=== PATIENT | male | born 1945 | race Caucasian/White ===

== ENCOUNTER 2025-06-06 10:46 | Outpatient (AMB) | payer MEDICARE, SELFPAY ==
--- NOTE | 2025-06-06 11:01 | MHC.PC.OV ---
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 Accompanied by: Self / Same As Patient Allergies No Known Allergies Allergy (Verified 06/06/25 11:23) Tobacco use date assessed: 06/06/25 Fall risk assessment: No Falls in past year Last assessed Fall Risk: 06/06/25 Dental Screening Dental Screen Date: 06/06/25 Did you have a dental visit in the last 12 months?: Yes Did you have a dental problem in the last 6 months where you did not have access to dental care?: No Was dental information given to patient?: Patient has dentist HPI HPI Comments History of Present Illness Details History of Present Illness The patient is a 79-year-old male presenting with the need to establish care with a new primary care physician following the group home of his previous vacation planner. Myocardial infarction (history of heart attack): - Experienced a myocardial infarction five years ago, described as mild, with a stent placement. 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 Anxiety disorder: - Long-standing anxiety managed with Xanax 0.5 mg once or twice daily. 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 Arthritis: - Reports arthritis, with a recent bruise from carrying items downstairs. Preventative care: Colonoscopy: - Last colonoscopy at age 75 was clear; next scheduled at age 80. Review of Systems - Cardiovascular: Reports history of myocardial infarction. Denies current chest pain or palpitations. - Respiratory: Reports history of COPD. Denies current dyspnea or cough. - Neurological: Reports anxiety managed with medication. Denies dizziness or headaches. - Musculoskeletal: Reports arthritis. Denies swelling or significant pain. 10-point ROS reviewed and negative except as noted in HPI Past Medical History - Myocardial infarction with stent placement five years ago - Chronic Obstructive Pulmonary Disease (COPD) - Anxiety disorder managed with alprazolam - Hyperlipidemia managed with rosuvastatin - Arthritis Health Maintenance - Colonoscopy: Last performed at age 75, clear results, next scheduled at age 80 Physical Exam General: Well-appearing, in no acute distress. Vital signs: Within normal limits. HEENT: Normocephalic, atraumatic. PERRLA, EOMI. Conjunctiva clear, sclera anicteric. Oropharynx clear, mucous membranes moist. TMs intact bilaterally. Neck: Supple, no lymphadenopathy, no thyromegaly, no JVD or carotid bruits. Cardiovascular: RRR, normal S1/S2, no murmurs, rubs, or gallops. Peripheral pulses 2+ and symmetric. No edema. Respiratory: Lungs clear to auscultation bilaterally, no wheezes, rales, or rhonchi. Normal effort. History of COPD. Abdomen: Soft, non-tender, non-distended. Normoactive bowel sounds. No hepatosplenomegaly, no masses. MSK: Full range of motion, no joint swelling or deformity. Normal gait. History of arthritis. Skin: Warm, dry, intact. No rashes, lesions, or pallor. Bruise noted on arm from recent minor trauma. Neuro: Alert and oriented x3. Cranial nerves II-XII intact. Strength 5/5 throughout. Sensation intact. Reflexes 2+ symmetric. Normal coordination and gait. Psych: Appropriate mood and affect. Normal judgment and insight. History of anxiety, managed with Xanax. Plan 1. Myocardial Infarction (History Of Heart Attack) - Continue cardiology follow-up and medication regimen. 2. Chronic Obstructive Pulmonary Disease (Copd) - Maintain inhaler therapy with Wixela and Singulair. 3. Anxiety Disorder - Continue management with alprazolam as needed. 4. Hyperlipidemia - Continue rosuvastatin therapy as prescribed. 5. Arthritis - Monitor symptoms for any changes. 6. Preventative Care: Colonoscopy - Schedule follow-up colonoscopy at age 80. Discussion Notes During the visit, we discussed the patient's history of myocardial infarction and the importance of continuing follow-up with his industrial gas production operator. We reviewed his COPD management plan, emphasizing the effectiveness of his current inhaler regimen. The patient was advised to maintain his anxiety management with alprazolam as needed. We also discussed the continuation of rosuvastatin for hyperlipidemia and the importance of regular monitoring for arthritis symptoms. The patient was reminded of his upcoming colonoscopy at age 80. Patient was informed and verbally consented to the use of an ambient scribe for clinic note documentation during this visit. Patient Instructions - Continue all current medications as prescribed. - Follow up with your industrial gas production operator as scheduled. - Schedule your next colonoscopy at age 80. - Monitor for any changes in arthritis symptoms and report if they worsen. Total time spent caring for the patient today was 45 minutes. This includes time spent before the visit reviewing the chart, time spent documenting, and time spent reviewing medications, performing a medically necessary evaluation, counseling on diagnoses [facility] Medical History (Updated 06/06/25 @ 12:10 by Vikash Cooper MD) History of TN (myocardial infarction) CAD (coronary artery disease) Hyperlipidemia COPD (chronic obstructive pulmonary disease) Encounter for screening, unspecified Surgical History (Updated 06/06/25 @ 12:10 by Vikash Cooper MD) History of heart artery stent Family History (Updated 06/06/25 @ 11:33 by Jacqueline Pearson MA) Father No problems noted. Mother No problems noted. Social History (Updated 06/06/25 @ 11:34 by Jacqueline Pearson MA) Housing: House Alcohol intake: current Alcohol intake frequency: a few times a week Patient Tobacco Use Status: Never used Tobacco service: Yes Current occupational status: retired and disabled Cognitive needs: No Hearing needs: No Vision needs: Yes (rx glasses) Questionnaire PHQ-9 Over the last 2 weeks, how often have you been bothered by any of the following problems? 1. Little interest or pleasure in doing things: not at all 2. Feeling down, depressed, or hopeless: not at all 3. Trouble falling or staying asleep, or sleeping too much: not at all 4. Feeling tired or having little energy: not at all 5. Poor appetite or overeating: not at all 6. Feeling bad about yourself - or that you are a failure or have let yourself or your family down: not at all 7. Trouble concentrating on things, such as reading the newspaper or watching television: not at all 8. Moving or speaking so slowly that other people could have noticed. Or the opposite - being so fidgety or restless that you have been moving around a lot more than usual: not at all 9. Thoughts that you would be better off or of hurting yourself in some way: not at all Total score: 0 Source: Developed by Drs. Tucker Guidry, Clifton Camargo and colleagues, with an educational riccardo from [employer]. Thrive Questionnaire I am a: Patient What is your living situation today?: I have a steady place to live Within the past 12 months, did the food you bought not last and you didn't have the money to get more?: Never true Within the past 12 months, did you worry whether your food would run out before you got money to buy more?: Never true Do you have trouble paying for medicines?: No Do you have trouble getting transportation to medical appointments?: No Do you have trouble paying your heating and electricity bill?: No Do you have trouble taking care of your child, family member or friend?: No Are you currently unemployed and looking for a job?: No Are you interested in more education?: No Please select the resources that you would like help with: None Currently or been in a relationship where the following occur: No concerns reported THRIVE Score: 0 AUDIT C Alcohol Use Questionnaire (AUDIT-C) 1. How often do you have a drink containing alcohol?: 2-3 times a week 2. How many drinks containing alcohol do you have on a typical day when you are drinking?: 1 or 2 3. How often do you have six or more drinks on one occasion?: Never Total Score: 3 PEGGY-7 AMB Questionnaire PEGGY-7 Feeling nervous, anxious, or on edge: 1 = Several days Not being able to stop or control worryin = Not at all Worrying too much about different things: 0 = Not at all Trouble relaxin = Not at all Being so restless that it is hard to sit still: 0 = Not at all Becoming easily annoyed or irritable: 0 = Not at all Feeling afraid as if something awful might happen: 0 = Not at all Total PEGGY-7 score (0-4 normal; 5-9 mild; 10-14 moderate; 15-21 severe): 1 Source: Developed by Drs. Tucker Guidry, Clifton Camargo and colleagues, with an educational riccardo from [employer]. Physical exam (Primary Care) Vital Signs: Last Vital Signs Temp 97.7 F 06/06/25 11:35 Pulse 71 06/06/25 11:35 Resp 16 06/06/25 11:35 BP 114/67 06/06/25 11:35 Pulse Ox 96 06/06/25 11:35 Oxygen Delivery Method Room Air 06/06/25 11:35 BMI result Body Mass Index 26.1 Tobacco/Smoking Status: Tobacco use Status Tobacco use date assessed 06/06/25 06/06/25 11:02 Patient Tobacco Use Status Never used Tobacco 06/06/25 11:38 PHQ-9: PHQ-9 Score PHQ-9: Total score 0 06/06/25 12:13 Currently or been in a relationship where the following occur: No concerns reported Coding Level of Care Code New Pt Level 4 (73116) Diagnoses COPD (chronic obstructive pulmonary disease) J44.9 Hyperlipidemia E78.5 CAD (coronary artery disease) I25.10 History of TN (myocardial infarction) I25.2 History of heart artery stent Z95.5 Anxiety F41.9 PTSD (post-traumatic stress disorder) F43.10 Arthritis M19.90 Assessment & Plan Assessment & Plan (1) COPD (chronic obstructive pulmonary disease): Code(s): J44.9 - Chronic obstructive pulmonary disease, unspecified Category: Medical (2) Hyperlipidemia: Code(s): E78.5 - Hyperlipidemia, unspecified Category: Medical (3) CAD (coronary artery disease): Code(s): I25.10 - Atherosclerotic heart disease of [place] coronary artery without angina pectoris Category: Medical (4) History of TN (myocardial infarction): Code(s): I25.2 - Old myocardial infarction Category: Medical (5) History of heart artery stent: Code(s): Z95.5 - Presence of coronary angioplasty implant and graft Category: Medical (6) Anxiety: Code(s): F41.9 - Anxiety disorder, unspecified (7) PTSD (post-traumatic stress disorder): Code(s): F43.10 - Post-traumatic stress disorder, unspecified (8) Arthritis: Code(s): M19.90 - Unspecified osteoarthritis, unspecified site Plan Orders: Orders Complete Blood Count Auto Diff 06/06/25 Z13.9 - Encounter for screening, unspecified Comprehensive Met. Panel 06/06/25 Z13.9 - Encounter for screening, unspecified Hepatitis B Surface Antigen 06/06/25 Z13.9 - Encounter for screening, unspecified Hepatitis C Antibody 06/06/25 Z13.9 - Encounter for screening, unspecified Syphilis Screen 06/06/25 Z13.9 - Encounter for screening, unspecified Vitamin B12 and Folate 06/06/25 Z13.9 - Encounter for screening, unspecified Hemoglobin A1c 06/06/25 Z13.9 - Encounter for screening, unspecified Hepatitis B Surface Antibody 06/06/25 Z13.9 - Encounter for screening, unspecified Lipid Panel 06/06/25 Z13.9 - Encounter for screening, unspecified HIV Ab/Ag 06/06/25 Z13.9 - Encounter for screening, unspecified UA CC w/rflx Micro + Cult 06/06/25 Z13.9 - Encounter for screening, unspecified Vitamin D 1,25 dihydroxy 06/06/25 Z13.9 - Encounter for screening, unspecified
[2025-06-06 11:35] VITALS: BP 114/67; PULSE 71; RESP 16; TEMP 36.5; O2SAT 96; BMI 26.1
--- OUTSIDE RECORDS SUMMARY | 2025-06-06 11:48 | XMS_ITS | Clinical Summary ---
Author Organization [facility] [address] [facility] Address [address] [place] [address] Phone Care Team Providers Care Vascular Sonographer Name Role Phone Dallin Cohen MD Primary Care Provider [phone] Social History Tobacco Use Types Packs/Day Years Used Date Smoking Tobacco: Never Assessed Sex and Gender Information Value Date Recorded Sex Assigned at Not on file Legal Sex Male 10:08 AM EST Gender Identity Not on file Sexual Orientation Not on file Plan of Treatment Health Maintenance Due Date Last Done Comments DTaP,Tdap,and Td Vaccines (1 - Tdap) 1964 Pneumococcal Vaccine: 50+ Years (1 of 2 - PCV) 1964 Zoster Vaccines (1 of 2) 12/07/1995 RSV Immunization Adult Patients (1 - 1-dose 75+ series) 2020 Falls Risk Assessment 08/07/2022 Hepatitis C Screening 08/07/2022 Medicare Annual Wellness Visit 08/07/2022 Social Influencers of Health Screening 08/07/2022 Depression Screening 09/04/2024 COVID-19 Vaccine (2 - 2024- season) 2025 11/14/2020 Influenza Vaccine (#1) 2025 Hypertension/CHF/CAD Annual BMP Blood Test 06/05/2026 06/05/2025 Cholesterol Screening (Lipid Panel) 06/05/2030 06/05/2025, 11/27/2024, 04/07/2023, Additional history exists HIB Vaccines Aged Out No longer eligi ble based on patient's age to complete this topic HPV Vaccines Aged Out No longer eligi ble based on patient's age to complete this topic Hepatitis A Vaccines Aged Out No long er eligible based on patient's age to complete this topic Hepatitis B Vaccines Aged Out No long er eligible based on patient's age to complete this topic IPV Vaccines Aged Out No longer eligi ble based on patient's age to complete this topic MMR Vaccines Aged Out No longer eligi ble based on patient's age to complete this topic Meningococcal ACWY Vaccine Aged Out N o longer eligible based on patient's age to complete this topic Meningococcal B Vaccine Aged Out No l onger eligible based on patient's age to complete this topic RSV Immunization Patients Under 20 months Aged Out No longer eligible based on patient's age to complete this topic Varicella Vaccines Aged Out No longer eligible based on patient's age to complete this topic Procedures Procedure Name Priority Date/Time Associated Diagnosis Comments CBC WITH AUTO DIFFERENTIAL Routine 06/05/2025 7:50 AM EDT Hyperlipemia Heart disease, unspecified Essential hypertension, malignant Asthmatic bronchitis Esophageal reflux Special screening for malignant neoplasm of prostate Senile arthritis Avitaminosis D VITAMIN D 25 HYDROXY Routine 06/05/2025 7:50 AM EDT Hyperlipemia Heart disease, unspecified Essential hypertension, malignant Asthmatic bronchitis Esophageal reflux Special screening for malignant neoplasm of prostate Senile arthritis Avitaminosis D VITAMIN B12 Routine 06/05/2025 7:50 AM EDT Hyperlipemia Heart disease, unspecified Essential hypertension, malignant Asthmatic bronchitis Esophageal reflux Special screening for malignant neoplasm of prostate Senile arthritis Avitaminosis D TESTOSTERONE, TOTAL Routine 06/05/2025 7 :50 AM EDT Hyperlipemia Heart disease, unspecified Essential hypertension, malignant Asthmatic bronchitis Esophageal reflux Special screening for malignant neoplasm of prostate Senile arthritis Avitaminosis D THYROID STIMULATING HORMONE Routine 06/05/2025 7:50 AM EDT Hyperlipemia Heart disease, unspecified Essential hypertension, malignant Asthmatic bronchitis Esophageal reflux Special screening for malignant neoplasm of prostate Senile arthritis Avitaminosis D PROSTATE SPECIFIC ANTIGEN DIAGNOSTIC Routine 06/05/2025 7:50 AM EDT Hyperlipemia Heart disease, unspecified Essential hypertension, malignant Asthmatic bronchitis Esophageal reflux Special screening for malignant neoplasm of prostate Senile arthritis Avitaminosis D HEMOGLOBIN A1C Routine 06/05/2025 7:50 AM EDT Hyperlipemia Heart disease, unspecified Essential hypertension, malignant Asthmatic bronchitis Esophageal reflux Special screening for malignant neoplasm of prostate Senile arthritis Avitaminosis D GLUCOSE, FASTING Routine 06/05/2025 7:50 AM EDT Hyperlipemia Heart disease, unspecified Essential hypertension, malignant Asthmatic bronchitis Esophageal reflux Special screening for malignant neoplasm of prostate Senile arthritis Avitaminosis D CREATININE, SERUM Routine 06/05/2025 7:5 0 AM EDT Hyperlipemia Heart disease, unspecified Essential hypertension, malignant Asthmatic bronchitis Esophageal reflux Special screening for malignant neoplasm of prostate Senile arthritis Avitaminosis D BUN Routine 06/05/2025 7:50 AM EDT Hyperlipemia Heart disease, unspecified Essential hypertension, malignant Asthmatic bronchitis Esophageal reflux Special screening for malignant neoplasm of prostate Senile arthritis Avitaminosis D CBC AND DIFFERENTIAL Routine 06/05/2025 7:50 AM EDT Hyperlipemia Heart disease, unspecified Essential hypertension, malignant Asthmatic bronchitis Esophageal reflux Special screening for malignant neoplasm of prostate Senile arthritis Avitaminosis D LIPID PANEL WITH REFLEX TO DIRECT LDL Routine 06/05/2025 7:50 AM EDT Hyperlipemia Heart disease, unspecified Essential hypertension, malignant Asthmatic bronchitis Esophageal reflux Special screening for malignant neoplasm of prostate Senile arthritis Avitaminosis D HEPATIC FUNCTION PANEL Routine 06/05/2025 7:50 AM EDT Hyperlipemia Heart disease, unspecified Essential hypertension, malignant Asthmatic bronchitis Esophageal reflux Special screening for malignant neoplasm of prostate Senile arthritis Avitaminosis D ELECTROLYTE PANEL Routine 06/05/2025 7:5 0 AM EDT Hyperlipemia Heart disease, unspecified Essential hypertension, malignant Asthmatic bronchitis Esophageal reflux Special screening for malignant neoplasm of prostate Senile arthritis Avitaminosis D from Last 3 Months Results * Lipid panel with reflex to direct LDL (06/05/2025 7:50 AM EDT) Cholesterol 150 0 - 200 mg/dL LAB CHEMISTRY METHOD 06/05/2025 11:54 AM EDT [facility] Triglycerides 56 <150 mg/dL LAB CHEMISTRY METHOD 06/05/2025 11:54 AM EDT [facility] HDL 64 mg/dL LAB CHEMISTRY METHOD 06/05/2025 11:54 AM EDT [facility] LDL Calculated 75 50 - 130 mg/dL LAB CHEMISTRY METHOD 06/05/2025 11:54 AM EDT [facility] VLDL Cholesterol Rafael 11.2 mg/dL LAB CHEMISTRY METHOD 06/05/2025 11:54 AM EDT [facility] Comment:No established refer ence range. Blood Venous blood specimen / Unknown Venipuncture / Unknown 06/05/2025 7:50 AM EDT 06/05/2025 7:50 AM EDT us Dallin Cohen MD LAB BLOOD ORDERABLES Final Res ult [facility] [address] [place] [address], * Prostate specific antigen diagnostic (06/05/2025 7:50 AM EDT) PSA 2.00 0.00 - 4.00 ng/mL LAB CHEMISTRY METHOD 06/05/2025 1:12 PM EDT [facility] Blood Venous blood specimen / Unknown Venipuncture / Unknown 06/05/2025 7:50 AM EDT 06/05/2025 7:50 AM EDT Narrative [facility] - 06/05/2025 1:12 PM EDT The testing method is an immunoenzymatic assay manufactured by [employer] and performed on the [employer] DxI 800. [employer] Prostate-Specific Antigen Best Practice Statement: 2009 Update (Pg.21) Table 1: Age Specific Reference Ranges for Serum PSA* Age Range Americans Americans Whites 40 to 49 yr 0 to 2.0 ng/ml 0 to 2.0 ng/ml 0 to 2.5 ng/ml 50 to 59 yr 0 to 3.0 ng/ml 0 to 4.0 ng/ml 0 to 3.5 ng/ml 60 to 69 yr 0 to 4.0 ng/ml 0 to 4.5 ng/ml 0 to 4.5 ng/ml 70 to 79 yr 0 to 5.0 ng/ml 0 to 5.5 ng/ml 0 to 6.5 ng/ml *German Norris. and Noah Shearer.:Age specific reference ranges for serum prostate specific antigen. Urol Clin [place]. 24: 339, 1997 us Dallin Choen MD LAB BLOOD ORDERABLES Final Res ult [facility] [address] [place] [id number], * (ABNORMAL) CBC auto differential (06/05/2025 7:50 AM EDT) WBC 8.8 4.0 - 10.5 K/mcL LAB HEMETOLOGY METHOD 06/05/2025 11:45 AM EDT [facility] RBC 4.28(L) 4.70 - 6.00 M/mcL LAB HEMETOLOGY METHOD 06/05/2025 11:45 AM EDT [facility] Hemoglobin 12.7(L) 13.5 - 18.0 g/dL LAB HEMETOLOGY METHOD 06/05/2025 11:45 AM EDT [facility] Hematocrit 38.9(L) 40.0 - 54.0 % LAB HEMETOLOGY METHOD 06/05/2025 11:45 AM EDT [facility] MCV 90.9 78.0 - 100.0 FL LAB HEMETOLOGY METHOD 06/05/2025 11:45 AM EDT [facility] MCH 29.6 25.0 - 33.0 pcg LAB HEMETOLOGY METHOD 06/05/2025 11:45 AM EDT [facility] MCHC 32.5 32.0 - 36.0 g/dL LAB HEMETOLOGY METHOD 06/05/2025 11:45 AM EDT [facility] RDW 13.9 12.1 - 17.7 % LAB HEMETOLOGY METHOD 06/05/2025 11:45 AM EDT [facility] Platelets 238 150 - 450 K/mcL LAB HEMETOLOGY METHOD 06/05/2025 11:45 AM EDT [facility] MPV 9.1 7.4 - 11.4 FL LAB HEMETOLOGY METHOD 06/05/2025 [facility] Neutrophils Relative 49.8 44.0 - 74.0 % LAB HEMETOLOGY METHOD 06/05/2025 11:45 AM EDT [facility] Lymphocytes Relative 25.9 20.0 - 48.0 % LAB HEMETOLOGY METHOD 06/05/2025 11:45 AM EDT [facility] Monocytes Relative 8.3 2.0 - 12.0 % LAB HEMETOLOGY METHOD 06/05/2025 11:45 AM [facility] Eosinophils Relative 14.7(H) 0.0 - 6.0 % LAB HEMETOLOGY METHOD 06/05/2025 11:45 AM EDT [facility] Basophils Relative 1.3 0.0 - 2.0 % LAB HEMETOLOGY METHOD 06/05/2025 11:45 AM EDT [facility] Neutrophils Absolute 4.40 1.80 - 7.80 K/mcL LAB HEMETOLOGY METHOD 06/05/2025 [facility] Lymphocytes Absolute 2.30 1.00 - 3.20 K/mcL LAB HEMETOLOGY METHOD 06/05/2025 11:45 AM EDT [facility] Monocytes Absolute 0.70 0.00 - 0.80 K/mcL LAB HEMETOLOGY METHOD 06/05/2025 11:45 AM EDT [facility] Eosinophils Absolute 1.30(H) 0.00 - 0.50 K/mcL LAB HEMETOLOGY METHOD 06/05/2025 11:45 AM EDT [facility] Basophils Absolute 0.10 0.00 - 0.20 K/mcL LAB HEMETOLOGY METHOD 06/05/2025 11:45 AM EDT [facility] Blood Venous blood specimen / Unknown Venipuncture / Unknown 06/05/2025 7:50 AM EDT 06/05/2025 7:50 AM EDT us Dallin Cohen MD LAB BLOOD ORDERABLES Final Res ult Performing Organization Address City/[facility]/ZIP Co de Phone Number [facility] [address] [place] [address], [place] [phone] * (ABNORMAL) Creatinine (06/05/2025 7:50 AM EDT) Creatinine 1.30 0.70 - 1.30 mg/dL LAB CHEMISTRY METHOD 06/05/2025 12:37 PM EDT [facility] eGFR 56(L) >=60 mL/min/1. 73m2 LAB CHEMISTRY METHOD 06/05/2025 12:37 PM EDT [facility] Comment:Calculation based on the Chronic Kidney Disease Epidemiology Collaboration (CKD-EPI) equation refit without adjustment for race. Blood Venous blood specimen / Unknown Venipuncture / Unknown 06/05/2025 7:50 AM EDT 06/05/2025 7:50 AM EDT us Dallin Cohen MD LAB BLOOD ORDERABLES Final Res ult [facility] [address] [place] [address], [place] [phone] * Vitamin D 25 hydroxy (06/05/2025 7:50 AM EDT) Vit D, 25-Hydroxy 40.6 30.0 - 100.0 ng/mL LAB CHEMISTRY METHOD 06/05/2025 12:17 PM EDT [facility] Blood Venous blood specimen / Unknown Venipuncture / Unknown 06/05/2025 7:50 AM EDT 06/05/2025 7:50 AM EDT Narrative [facility] - 06/05/2025 12:17 PM EDT Vitamin D Reference Range ng/ml Deficiency <10 Insufficiency 10-30 Sufficiency 30-100 Toxicity >100 us Dallin Cohen MD LAB BLOOD ORDERABLES Final Res ult [facility] [address] [place] [address], * (ABNORMAL) BUN (06/05/2025 7:50 AM EDT) BUN 23(H) 9 - 20 mg/dL LAB CHEMISTRY METHOD 06/05/2025 12:37 PM EDT [facility] Blood Venous blood specimen / Unknown Venipuncture / Unknown 06/05/2025 7:50 AM EDT 06/05/2025 7:50 AM EDT us Dallin Cohen MD LAB BLOOD ORDERABLES Final Res ult [facility] [address] [place] [address], * Thyroid stimulating hormone (06/05/2025 7:50 AM EDT) TSH 2.12 0.45 - 5.33 mcIU/mL LAB CHEMISTRY METHOD 06/05/2025 12:17 PM EDT [facility] Blood Venous blood specimen / Unknown Venipuncture / Unknown 06/05/2025 7:50 AM EDT 06/05/2025 7:50 AM EDT Dallin Cohen MD LAB BLOOD ORDERABLES Final Res ult [facility] [address] [place] [address], [place] [phone] * Testosterone, total (06/05/2025 7:50 AM EDT) Testosterone 401 240 - 950 ng/dL LAB CHEMISTRY METHOD 06/05/2025 12:17 PM EDT [facility] Blood Venous blood specimen / Unknown Venipuncture / Unknown 06/05/2025 7:50 AM EDT 06/05/2025 7:50 AM EDT Dallin Cohen MD LAB BLOOD ORDERABLES Final Res ult [facility] [address] [place] [address], [place] [phone] * (ABNORMAL) Hemoglobin A1c (06/05/2025 7:50 AM EDT) Hemoglobin A1C 5.9(H) <5.7 % LAB CHEMISTRY METHOD 06/05/2025 12:14 PM EDT [facility] Mean Bld Glu Estim. 123 mg/dL LAB CHEMISTRY METHOD 06/05/2025 12:14 PM EDT [facility] Blood Venous blood specimen / Unknown Venipuncture / Unknown 06/05/2025 7:50 AM EDT 06/05/2025 7:50 AM EDT Narrative [facility] - 06/05/2025 12:14 PM EDT ADA Guidelines: Increased risk Diabetes Mellitus A1C 5.7 - 6.4% and Fasting Blood Glucose 100 - 125 mg/dl Diabetes Mellitus: A1C >6.5% and Fasting Blood Glucose >125 mg/dl us Dallin Cohen MD LAB BLOOD ORDERABLES Final Res ult Performing Organization Address City/[facility]/ZIP Co de Phone Number [facility] [address] [place] [address], [place] [phone] * Glucose, fasting (06/05/2025 7:50 AM EDT) Glucose, Fasting 92 70 - 99 mg/dL LAB CHEMISTRY METHOD 06/05/2025 11:54 AM EDT [facility] Blood Venous blood specimen / Unknown Venipuncture / Unknown 06/05/2025 7:50 AM EDT 06/05/2025 7:50 AM EDT us Dallin Cohen MD LAB BLOOD ORDERABLES Final Res ult Performing Organization Address [facility]/ZIP Co de Phone Number [facility] [address] [place] [address], [place] [phone] * Vitamin B12 (06/05/2025 7:50 AM EDT) [facility] Vitamin B-12 306 180 - 914 pcg/mL LAB CHEMISTRY METHOD 06/05/2025 12:17 PM EDT [facility] Blood Venous blood specimen / Unknown Venipuncture / Unknown 06/05/2025 7:50 AM EDT 06/05/2025 7:50 AM EDT us Dallin Cohen MD LAB BLOOD ORDERABLES Final Res ult Performing Organization Address City/[facility]/ZIP Co de Phone Number [facility] [address] [place] [address], [place] [phone] * Hepatic function panel (06/05/2025 7:50 AM EDT) [facility] ALT (SGPT) 20 7 - 52 unit/L LAB CHEMISTRY METHOD 06/05/2025 11:54 AM EDT [facility] AST (SGOT) 24 5 - 40 unit/L LAB CHEMISTRY METHOD 06/05/2025 11:54 AM EDT [facility] Alkaline Phosphatase 66 34 - 104 unit/L LAB CHEMISTRY METHOD 06/05/2025 11:54 AM EDT [facility] Bilirubin, Direct 0.2 0.0 - 0.2 mg/dL LAB CHEMISTRY METHOD 06/05/2025 11:54 AM EDT [facility] Total Bilirubin 0.7 0.3 - 1.0 mg/dL LAB CHEMISTRY METHOD 06/05/2025 11:54 AM EDT [facility] Total Protein 6.9 6.4 - 8.5 g/dL LAB CHEMISTRY METHOD 06/05/2025 11:54 AM EDT [facility] Albumin 4.0 3.5 - 5.0 g/dL LAB CHEMISTRY METHOD 06/05/2025 11:54 AM EDT [facility] Globulin, Total 2.9 2.3 - 3.5 g/dL LAB CHEMISTRY METHOD 06/05/2025 11:54 AM [facility] A/G Ratio 1.4 LAB CHEMISTRY METHOD 06/05/2025 11:54 AM T [facility] Blood Venous blood specimen / Unknown Venipuncture / Unknown 06/05/2025 7:50 AM EDT 06/05/2025 7:50 AM EDT us Dallin Cohen MD LAB BLOOD ORDERABLES Final Res ult [facility] [address] [place] [address], [place] [phone] * Electrolyte panel (06/05/2025 7:50 AM EDT) Sodium 138 135 - 145 mmol/L LAB CHEMISTRY METHOD 06/05/2025 12:37 PM EDT [facility] Potassium 4.7 3.5 - 5.1 mmol/L LAB CHEMISTRY METHOD 06/05/2025 12:37 PM EDT [facility] Chloride 103 98 - 107 mmol/L LAB CHEMISTRY METHOD 06/05/2025 12:37 PM EDT [facility] CO2 26 24 - 32 mmol/L LAB CHEMISTRY METHOD 06/05/2025 12:37 PM EDT [facility] Anion Gap 9 5 - 14 LAB CHEMISTRY METHOD 06/05/2025 12:37 PM EDT [facility] Blood Venous blood specimen / Unknown Venipuncture / Unknown 06/05/2025 7:50 AM EDT 06/05/2025 7:50 AM EDT us Dallin Cohen MD LAB BLOOD ORDERABLES Final Res ult [facility] [address] [place] [address], [place] [phone] from Last 3 Months Insurance [employer] MEDICARE ADVANTAGE Care Teams Vascular Sonographer Relationship Specialty Start Date End Date Dallin Cohen MD [address] [facility] [place] [address] PCP - General Pulmonary Disease 08/21/15
--- OUTSIDE RECORDS SUMMARY | 2025-06-06 11:48 | XMS_ITS | Clinical Summary ---
Author Organization [facility] Address [address] [place] [address] Care Team Providers Care Blood Donor Recruiter Name Role Phone Dallin Cohen MD Primary Care Provider [phone] Social History Tobacco Use Types Packs/Day Years Used Date Smoking Tobacco: Never Assessed Sex and Gender Information Value Date Recorded Sex Assigned at Not on file Gender Identity Not on file Sexual Orientation Not on file Job Start Date Occupation Industry Not on file Not on file Not on file Plan of Treatment Health Maintenance Due Date Last Done Comments Hepatitis C Screening 1945 Depression Screening 1957 Preventative Health Evaluation 12/07/1963 DTap / Tdap / Td (1 - Tdap) 1964 Shingrix-Zoster Vaccine (1 of 2) 12/07/1995 Fall Risk Assessment 2010 Pneumococcal Vaccine (1 of 1 - PCV) 2010 RSV Adult > 60+ Yrs or Pregn ant (1 - 1-dose 75+ series) 2020 COVID-19 Vaccine (2 - 2024-2 6 season) 2025 11/14/2020 Influenza Vaccine (#1) 2025 Hepatitis B Vaccines Aged Out No long er eligible based on patient's age to complete this topic RSV Ped < 20 months Aged Out No longe r eligible based on patient's age to complete this topic Advance Directives For more information, please contact: [phone] Documents on File Type Date Recorded 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
--- OUTSIDE RECORDS SUMMARY | 2025-06-06 11:48 | XMS_ITS ---
Author Name [facility] Organization Unknown Problems Problem Status Onset Date Problem Type Date of Resoluti on Source Ischemic heart disease active EncounterDiagnosisAct CCT Encounters Encounter Type Encounter Reason Primary Diagnosis Location Date Ambulatory [facility] 07/02/2024 Ambulatory Chronic ischemic heart disease, unspecified Chronic ischemic heart disease, unspecified [facility] 06/28/2023 Ambulatory Heart failure, unspecified Heart failure, unspecified [facility] 04/07/2023 Care Team Organization Name Specialty Phone Email Start Date End Da te [facility] 2024 [facility] 08/22/2024 03/14/2025 [facility] 06/28/2023 06/28/2023 [facility] Primary Care 06/28/2023 06/28/2023 [facility] 2022 [facility] Primary Care 04/0704/07/2023
== END 2025-06-06 12:22 | disposition home or self-care (01) ==
PROVIDERS: PCP Student in an Organized Health Care Education/Training Program; Visit Provider Student in an Organized Health Care Education/Training Program
DX: J44.9 Chronic obstructive pulmonary disease, unspecified (principal); E78.5 Hyperlipidemia, unspecified; I25.10 Atherosclerotic heart disease of native coronary artery without angina pectoris; I25.2 Old myocardial infarction; Z95.5 Presence of coronary angioplasty implant and graft; F41.9 Anxiety disorder, unspecified; F43.10 Post-traumatic stress disorder, unspecified; M19.90 Unspecified osteoarthritis, unspecified site

== ENCOUNTER → 2025-06-06 10:46 | Outpatient (BNVA) | payer MEDICARE, SELFPAY | PROVIDERS: PCP Student in an Organized Health Care Education/Training Program; Visit Provider Student in an Organized Health Care Education/Training Program | DX: J44.9 Chronic obstructive pulmonary disease, unspecified (principal); E78.5 Hyperlipidemia, unspecified; I25.10 Atherosclerotic heart disease of native coronary artery without angina pectoris; F41.9 Anxiety disorder, unspecified; F43.10 Post-traumatic stress disorder, unspecified; M19.90 Unspecified osteoarthritis, unspecified site; Z79.899 Other long term (current) drug therapy; I25.2 Old myocardial infarction; Z95.5 Presence of coronary angioplasty implant and graft; Z13.30 Encounter for screening examination for mental health and behavioral disorders, unspecified | CPT/HCPCS: 96127; 99202 ==

== ENCOUNTER 2025-07-16 09:40 | Outpatient (AMB) | payer MEDICARE, SELFPAY ==
[2025-07-16 09:46] VITALS: BP 142/67; PULSE 67; TEMP 36.9; O2SAT 95; BMI 25.5
--- NOTE | 2025-07-16 09:46 | MHC.PC.OV ---
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 Accompanied by: Self / Same As Patient Allergies No Known Allergies Allergy (Verified 07/16/25 09:46) Medication List - Last Reconciled 07/16/25 by Vikash Cooper MD alprazolam 0.5 mg PO TID aspirin 81 mg PO DAILY fluticasone propion-salmeterol 250-50 mcg/dose (Wixela Inhub) 1 ea inhalation BID metoprolol succinate ER 50 mg PO DAILY metoprolol tartrate 25 mg PO Q8H PRN montelukast 10 mg PO DAILY nystatin 100,000 units PO DAILY rosuvastatin 20 mg PO DAILY sildenafil mg PO DIRECTED Tobacco use date assessed: 07/16/25 Fall risk assessment: No Falls in past year Last assessed Fall Risk: 07/16/25 Dental Screening Dental Screen Date: 07/16/25 Did you have a dental visit in the last 12 months?: Yes Did you have a dental problem in the last 6 months where you did not have access to dental care?: No Was dental information given to patient?: Patient has dentist HPI HPI Comments History of Present Illness Details History of Present Illness The patient is a 79-year-old male presenting for medication management and general follow-up. Chronic Obstructive Pulmonary Disease: The patient has a history of COPD and manages his condition with a once-a-day inhaler, Wixela, and Singulair (montelukast). He sometimes uses the Wixela inhaler twice a day if he experiences significant allergy congestion. He reports that his lungs are currently clear and without congestion. Anxiety Disorder: The patient takes Xanax (alprazolam) 0.5 mg once a day for anxiety, which he relates to both his breathing from COPD and his history of a heart attack. He reports the medication is helpful and denies abusing it. Oral Candidiasis: The patient recently developed oral thrush, which he attributes to forgetting to rinse his mouth for one or two days after using his inhaler. This is the second time in 15 years of using the inhaler that this has occurred. He has temporarily suspended using his Wixela inhaler for the past two days due to the thrush. Coronary Artery Disease: The patient had a heart attack in 2020 after getting dizzy and dehydrated while working outside in 97-degree heat. He recognized the symptoms and was taken to the hospital, where he was stabilized and transferred for a cardiac catheterization and stent placement. 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 He takes metoprolol tartrate 25 mg daily and has metoprolol succinate 50 mg for as-needed use for heart palpitations, which he experienced a couple of months ago. Enlarged Testicle: The patient has an enlarged right testicle. He was evaluated at [facility] where an ultrasound was performed, and the findings were normal. He was informed that this can be a common finding and was advised to follow up if it gets bigger. Surgical History: - Cardiac stent placement (2020) - Knee replacement Medications: - Wixela inhaler, once daily for COPD (currently holding) - Singulair (montelukast) for respiratory symptoms - Xanax (alprazolam) 0.5 mg once daily for anxiety - Rosuvastatin, prescribed by punchboard inserter - Metoprolol tartrate 25 mg daily - Metoprolol succinate extended release 50 mg as needed for palpitations Social History: - The patient is a who served in the [employer] - He describes himself as spiritual and prays daily. Diagnostic Results: - Labs: Patient reports having comprehensive blood work done in June, prior to this visit. - Urology: An ultrasound of the testicles performed at [facility] was reportedly normal. Past Medical History - Myocardial Infarction (2020), status post cardiac stent placement. - Chronic Obstructive Pulmonary Disease (COPD) - Anxiety - Oral Candidiasis - Heart palpitations - Enlarged right testicle - History of knee replacement Health Maintenance - The patient will follow up in November. - Orders will be placed for comprehensive lab work to be completed two weeks prior to the November appointment. - The patient will continue to follow with his punchboard inserter, Dr. Tamayo, and will bring a report from that visit to his next appointment. [facility] Medical History (Updated 07/16/25 @ 19:36 by Vikash Cooper MD) Enlarged testicle Anxiety disorder Thrush History of [place] (myocardial infarction) CAD (coronary artery disease) Hyperlipidemia COPD (chronic obstructive pulmonary disease) Encounter for screening, unspecified Surgical History History of heart artery stent Family History Father No problems noted. Mother No problems noted. Social History Housing: House Alcohol intake: current Alcohol intake frequency: a few times a week Patient Tobacco Use Status: Never used Tobacco service: Yes Current occupational status: retired and disabled Cognitive needs: No Hearing needs: No Vision needs: Yes (rx glasses) Questionnaire PHQ-9 Over the last 2 weeks, how often have you been bothered by any of the following problems? 1. Little interest or pleasure in doing things: not at all 2. Feeling down, depressed, or hopeless: not at all 3. Trouble falling or staying asleep, or sleeping too much: not at all 4. Feeling tired or having little energy: not at all 5. Poor appetite or overeating: not at all 6. Feeling bad about yourself - or that you are a failure or have let yourself or your family down: not at all 7. Trouble concentrating on things, such as reading the newspaper or watching television: not at all 8. Moving or speaking so slowly that other people could have noticed. Or the opposite - being so fidgety or restless that you have been moving around a lot more than usual: not at all 9. Thoughts that you would be better off or of hurting yourself in some way: not at all Total score: 0 Depression Screening Interpretation: Negative Depression Screening Done: Yes Source: Developed by Drs. Tucker Guidry, Skyla Villanueva, Clifton Irwin and colleagues, with an educational riccardo from [employer]. Thrive Questionnaire Date Thrive assessed: 07/16/25 I am a: Patient What is your living situation today?: I have a steady place to live Within the past 12 months, did the food you bought not last and you didn't have the money to get more?: Never true Within the past 12 months, did you worry whether your food would run out before you got money to buy more?: Never true Do you have trouble paying for medicines?: No Do you have trouble getting transportation to medical appointments?: No Do you have trouble paying your heating and electricity bill?: No Do you have trouble taking care of your child, family member or friend?: No Are you currently unemployed and looking for a job?: No Are you interested in more education?: No Please select the resources that you would like help with: None Currently or been in a relationship where the following occur: No concerns reported THRIVE Score: 0 AUDIT C Alcohol Use Questionnaire (AUDIT-C) 1. How often do you have a drink containing alcohol?: 2-3 times a week 2. How many drinks containing alcohol do you have on a typical day when you are drinking?: 1 or 2 3. How often do you have six or more drinks on one occasion?: Never Total Score: 3 PEGGY-7 AMB Questionnaire PEGGY-7 Date PEGGY - 7 assessed: 07/16/25 Feeling nervous, anxious, or on edge: 1 = Several days Not being able to stop or control worryin = Not at all Worrying too much about different things: 0 = Not at all Trouble relaxin = Not at all Being so restless that it is hard to sit still: 0 = Not at all Becoming easily annoyed or irritable: 0 = Not at all Feeling afraid as if something awful might happen: 0 = Not at all Total PEGGY-7 score (0-4 normal; 5-9 mild; 10-14 moderate; 15-21 severe): 1 Source: Developed by Drs. Tucker Guidry, Skyla Villanueva, Clifton Irwin and colleagues, with an educational riccardo from [employer]. Review of Systems Narrative Review of Systems - Constitutional: Reports feeling well. - Respiratory: Reports occasional allergy congestion. - Cardiovascular: Reports a history of heart palpitations, which occurred a few months ago. - HEENT: Reports symptoms of oral thrush. - Genitourinary: Reports an enlarged right testicle. 10-point ROS reviewed and negative except as noted in HPI Physical exam (Primary Care) Vital Signs: Last Vital Signs Temp 98.4 F 07/16/25 09:46 Pulse 67 07/16/25 09:46 BP 142/67 H 07/16/25 09:46 Pulse Ox 95 11/12/25 09:46 Oxygen Delivery Method Room Air 07/16/25 09:46 BMI result Body Mass Index 25.5 Tobacco/Smoking Status: Tobacco use Status Tobacco use date assessed 07/16/25 07/16/25 09:47 Patient Tobacco Use Status Never used Tobacco 07/16/25 09:47 PHQ-9: PHQ-9 Score PHQ-9: Total score 0 07/16/25 09:58 Depression Screening Interpretation: Negative Thrive Assessment: Date of Thrive Assessment Date Thrive assessed 07/16/25 07/16/25 09:47 Currently or been in a relationship where the following occur: No concerns reported Narrative Physical Exam General: Well-appearing, in no acute distress. Vital signs: Within normal limits. HEENT: Normocephalic, atraumatic. PERRLA, EOMI. Conjunctiva clear, sclera anicteric. Oropharynx clear, mucous membranes moist. TMs intact bilaterally. Neck: Supple, no lymphadenopathy, no thyromegaly, no JVD or carotid bruits. Cardiovascular: RRR, normal S1/S2, no murmurs, rubs, or gallops. Peripheral pulses 2+ and symmetric. No edema. Respiratory: Lungs clear to auscultation bilaterally, no wheezes, rales, or rhonchi. Normal effort. Abdomen: Soft, non-tender, non-distended. Normoactive bowel sounds. No hepatosplenomegaly, no masses. MSK: Full range of motion, no joint swelling or deformity. Normal gait. Skin: Warm, dry, intact. No rashes, lesions, or pallor. Neuro: Alert and oriented x3. Cranial nerves II-XII intact. Strength 5/5 throughout. Sensation intact. Reflexes 2+ symmetric. Normal coordination and gait. Psych: Appropriate mood and affect. Normal judgment and insight. Office Procedures Flu Questionnaire Does the patient have a severe egg allergy?: No Does the patient have severe life threatening allergies?: No Does the patient have a fever or illness today?: No Has the patient ever had Guillain-Ancona Syndrome?: No Has the patient ever had any past reaction to a flu shot?: No Immunizations Fluarix [id number] (PF) 45 mcg (15 mcg x 3)/0.5 mL IM syringe Performing Provider: Vikash Cooper MD Performing Location: [facility] [place] [facility] Documented (not given) by: Yesenia Campbell CMA on 07/16/25 09:57 Reason Not Given: Received Previously Coding Level of Care Code Est Pt Level 4 (29086) Diagnoses COPD (chronic obstructive pulmonary disease) J44.9 Anxiety disorder F41.9 Thrush B37.0 CAD (coronary artery disease) I25.10 Enlarged testicle N50.89 Oral candidiasis B37.0 Assessment & Plan Assessment & Plan (1) COPD (chronic obstructive pulmonary disease): Code(s): J44.9 - Chronic obstructive pulmonary disease, unspecified Category: Medical (2) Anxiety disorder: Code(s): F41.9 - Anxiety disorder, unspecified Category: Medical (3) Thrush: Code(s): B37.0 - Candidal stomatitis Category: Medical (4) CAD (coronary artery disease): Code(s): I25.10 - Atherosclerotic heart disease of [place] coronary artery without angina pectoris Category: Medical (5) Enlarged testicle: Code(s): N50.89 - Other specified disorders of the male genital organs Category: Medical (6) Oral candidiasis: Code(s): B37.0 - Candidal stomatitis Plan Consent Patient was informed and verbally consented to the use of an ambient scribe for clinic note documentation during this visit. Plan 1. Chronic Obstructive Pulmonary Disease - Refills for Wixela inhaler and Singulair (montelukast) were sent to the patient's pharmacy, [facility] in [place]. 2. Oral Candidiasis - The patient was instructed to temporarily discontinue his Wixela inhaler. - A prescription for Nystatin oral suspension was sent to the pharmacy. - The patient should use the medication until the thrush has resolved. 3. Anxiety Disorder - A prescription for alprazolam (Xanax) will be sent to the pharmacy later today. 4. Enlarged Testicle - The patient was reassured that an enlarged testicle can be a common and benign finding. - He was instructed to return for evaluation if the testicle gets larger. Discussion Notes I discussed taking over the prescriptions for the patient's COPD medications (Wixela, montelukast) and his anxiety medication (alprazolam) from his previous provider, Dr. Walker. We reviewed his new onset of oral thrush, likely a side effect of his inhaler, and I have prescribed Nystatin oral suspension. I advised him to temporarily hold his Wixela inhaler until the thrush resolves. We also reviewed his history of an enlarged right testicle and the normal urology workup, and I reassured him that this can be a benign finding, advising him to return if it enlarges further. We have scheduled a follow-up appointment for November, at which time we can perform a full annual physical. I will place an order for comprehensive lab work to be done two weeks prior to that appointment. Patient Instructions - I have sent refills for your Wixela inhaler and Singulair (montelukast) to your pharmacy. - I will send a refill for Xanax (alprazolam) later today. - For the thrush in your mouth, please stop using your Wixela inhaler for a few days. - I have sent a prescription for Nystatin oral suspension to your pharmacy. Swish and swallow the liquid as directed until it is all gone. - You can restart your Wixela inhaler once the thrush is gone. Remember to rinse your mouth after each use. - Please schedule a follow-up appointment for November. - We will arrange for you to have blood work done about two weeks before your November appointment. - Continue to see your heart doctor as planned and bring her report to your next visit with me. Medical Decision Making The patient is a 79-year-old male with a history of COPD, anxiety, and coronary artery disease, who presented for medication management and follow-up. His primary concerns today were management of his medications for COPD and a new onset of oral candidiasis, likely secondary to his Wixela inhaler use. His COPD appears well-controlled on his current regimen, as his lungs are clear to auscultation with no wheezing. I have taken over prescribing his Wixela, montelukast, and alprazolam. Given the oral thrush, I have prescribed Nystatin oral suspension and advised him to temporarily hold the Wixela inhaler, which is the appropriate management. His history of an enlarged right testicle was reviewed; given the benign findings on a prior urology evaluation including ultrasound, the plan is for continued observation with instructions to return for any change. We will have a routine follow-up in approximately four months, with plans for a complete physical and comprehensive lab work at that time. Total time spent caring for the patient today was 20 minutes. This includes time spent before the visit reviewing the chart, time spent documenting, and time spent reviewing laboratory results, diagnostic imaging, medications, performing a medically necessary evaluation, counseling on diagnoses, care coordination. Orders: Orders Influenza [id number] Immunization Today Z23 - Encounter for immunization Complete Blood Count Auto Diff 11/10/25 Z12.10 - Encounter for screening for malignant neoplasm of intestinal tract, unspecified Comprehensive Met. Panel 11/10/25 Z12.10 - Encounter for screening for malignant neoplasm of intestinal tract, unspecified Hepatitis B Surface Antibody 11/10/25 Z12.10 - Encounter for screening for malignant neoplasm of intestinal tract, unspecified Hemoglobin A1c 11/10/25 Z12.10 - Encounter for screening for malignant neoplasm of intestinal tract, unspecified Hepatitis B Surface Antigen 11/10/25 Z12.10 - Encounter for screening for malignant neoplasm of intestinal tract, unspecified Hepatitis C Antibody 11/10/25 Z12.10 - Encounter for screening for malignant neoplasm of intestinal tract, unspecified Lipid Panel 11/10/25 Z12.10 - Encounter for screening for malignant neoplasm of intestinal tract, unspecified Magnesium 11/10/25 Z12.10 - Encounter for screening for malignant neoplasm of intestinal tract, unspecified TSH reflex Free T4 11/10/25 Z12.10 - Encounter for screening for malignant neoplasm of intestinal tract, unspecified UA CC w/rflx Micro + Cult 11/10/25 Z12.10 - Encounter for screening for malignant neoplasm of intestinal tract, unspecified Vitamin B12 and Folate 11/10/25 Z12.10 - Encounter for screening for malignant neoplasm of intestinal tract, unspecified HIV Ab/Ag 11/10/25 Z12.10 - Encounter for screening for malignant neoplasm of intestinal tract, unspecified Vitamin D 1,25 dihydroxy 11/10/25 Z12.10 - Encounter for screening for malignant neoplasm of intestinal tract, unspecified Medications: New fluticasone propion-salmeterol 250-50 mcg/dose (Wixela Inhub) 1 ea inhalation BID 60 ea 0RF nystatin administer 1/2 of dose in each side of the mouth 100,000 units PO DAILY 250 mL 0RF B37.0 - Candidal stomatitis alprazolam 0.5 mg PO TID 90 tabs 0RF montelukast 10 mg PO DAILY 90 tabs 0RF
--- OUTSIDE RECORDS SUMMARY | 2025-07-16 10:59 | XMS_ITS | Clinical Summary ---
Author Organization [facility] Address [address] [place] [address] Care Team Providers Care Paraprofessional Aide Teacher Name Role Phone Dallin Cohen MD Primary Care Provider [phone] Social History Tobacco Use Types Packs/Day Years [...] Advance Directives For more information, please contact: [phone] Documents on File Type Date Recorded Patient [facility] [employer] Experience Strategy Expl anation Advance Directive and Living Will 02/19/2016 6:50 AM Care Teams Paraprofessional Aide Teacher Relationship Specialty Start Date End Date Dallin Cohen MD [address] [place] [id number] PCP - General Pulmonary Disease 08/21/15
--- OUTSIDE RECORDS SUMMARY | 2025-07-16 10:59 | XMS_ITS | Clinical Summary ---
Author Organization [facility] [address] [facility] Address [address] [place] [address] Phone Care Team Providers Care Dental Practice Manager Name Role Phone Dallin Cohen MD Primary Care Provider [phone] Social History Tobacco Use Types Packs/Day Years [...] LAB CHEMISTRY METHOD 06/05/2025 11:54 AM EDT [facility] Triglycerides 56 <150 mg/dL LAB CHEMISTRY METHOD 06/05/2025 11:54 AM EDT [facility] HDL 64 mg/dL LAB CHEMISTRY METHOD 06/05/2025 11:54 AM EDT [facility] LDL Calculated 75 50 - 130 mg/dL LAB CHEMISTRY METHOD 06/05/2025 11:54 AM EDT [facility] VLDL Cholesterol Rafael 11.2 mg/dL LAB CHEMISTRY METHOD 06/05/2025 11:54 AM EDT [facility] Comment:No established refer ence range. Blood Venous blood specimen / Unknown Venipuncture / Unknown 06/05/2025 7:50 AM EDT 06/05/2025 7:50 AM EDT us Dallin Cohen MD LAB BLOOD ORDERABLES Final Res ult [facility] [address] [place] [address], * Prostate specific antigen diagnostic (06/05/2025 7:50 AM EDT) PSA 2.00 0.00 - 4.00 ng/mL LAB CHEMISTRY METHOD 06/05/2025 1:12 PM EDT [facility] Blood Venous blood specimen / Unknown Venipuncture / Unknown 06/05/2025 7:50 AM EDT 06/05/2025 7:50 AM EDT Narrative [facility] - 06/05/2025 1:12 PM EDT The testing method is an immunoenzymatic assay manufactured by [employer] and performed on the [employer] DxI 800. [employer] Prostate-Specific Antigen Best Practice Statement: [...] [place] 24: 339, 1997 us Dallin Cohen MD LAB BLOOD ORDERABLES Final Res ult [facility] [address] [place] [address], * (ABNORMAL) CBC auto differential (06/05/2025 7:50 AM EDT) WBC 8.8 4.0 - 10.5 K/mcL LAB HEMETOLOGY METHOD 06/05/2025 11:45 AM EDT [facility] RBC 4.28(L) 4.70 - 6.00 M/mcL LAB HEMETOLOGY METHOD 06/05/2025 11:45 AM EDT [facility] Hemoglobin 12.7(L) 13.5 - 18.0 g/dL LAB HEMETOLOGY METHOD 06/05/2025 11:45 AM EDT [facility] Hematocrit 38.9(L) 40.0 - 54.0 % LAB HEMETOLOGY METHOD 06/05/2025 11:45 AM EDT [facility] MCV 90.9 78.0 - 100.0 FL LAB HEMETOLOGY METHOD 06/05/2025 11:45 AM EDT [facility] MCH 29.6 25.0 - 33.0 pcg LAB HEMETOLOGY METHOD 06/05/2025 11:45 AM EDT [facility] MCHC 32.5 32.0 - 36.0 g/dL LAB HEMETOLOGY METHOD 06/05/2025 11:45 AM EDT [facility] RDW 13.9 12.1 - 17.7 % LAB HEMETOLOGY METHOD 06/05/2025 11:45 AM EDT [facility] Platelets 238 150 - 450 K/mcL LAB HEMETOLOGY METHOD 06/05/2025 11:45 AM EDT [facility] MPV 9.1 7.4 - 11.4 FL LAB [facility]OLOG[facility] Neutrophils Relative 49.8 44.0 - 74.0 % LAB HEMETOLOGY METHOD 06/05/2025 11:45 AM EDT [facility] Lymphocytes Relative 25.9 20.0 - 48.0 % LAB HEMETOLOGY METHOD 06/05/2025 11:45 AM EDT [facility] Monocytes Relative 8.3 2.0 - 12.0 % LAB HEMETOLOGY METHOD 06/05/2025 11:45 AM [facility] Eosinophils Relative 14.7(H) 0.0 - 6.0 % LAB HEMETOLOGY METHOD 06/05/2025 11:45 AM EDT [facility] Basophils Relative 1.3 0.0 - 2.0 % LAB HEMETOLOGY METHOD 06/05/2025 11:45 AM EDT [facility] Neutrophils Absolute 4.40 1.80 - 7.80 K/mcL LAB HEMETOLOGY METHOD 06/05[facility]2025 [facility] Lymphocytes Absolute 2.30 1.00 - 3.20 K/mcL LAB HEMETOLOGY METHOD 06/05/2025 11:45 AM EDT [facility] Monocytes Absolute 0.70 0.00 - 0.80 K/mcL LAB HEMETOLOGY METHOD 06/05/2025 11:45 AM EDT [facility] Eosinophils Absolute 1.30(H) 0.00 - 0.50 K/mcL LAB HEMETOLOGY METHOD 06/05/2025 11:45 AM EDT [facility] Basophils Absolute 0.10 0.00 - 0.20 K/mcL LAB HEMETOLOGY METHOD 06/05/2025 11:45 AM EDT [facility] Blood Venous blood specimen / Unknown Venipuncture / Unknown 06/05/2025 7:50 AM EDT 06/05/2025 7:50 AM EDT us Dallin Cohen MD LAB BLOOD ORDERABLES Final Res ult Performing Organization Address City/[facility]/ZIP Co de Phone Number [facility] [address] [place] [address], [place] [phone] * (ABNORMAL) Creatinine (06/05/2025 7:50 AM EDT) Creatinine 1.30 0.70 - 1.30 mg/dL LAB CHEMISTRY METHOD 06/05/2025 12:37 PM EDT [facility] eGFR 56(L) >=60 mL/min/1. 73m2 LAB CHEMISTRY METHOD 06/05/2025 12:37 PM EDT [facility] Comment:Calculation based on the Chronic Kidney Disease Epidemiology Collaboration (CKD-EPI) equation refit without adjustment for race. Blood Venous blood specimen / Unknown Venipuncture / Unknown 06/05/2025 7:50 AM EDT 06/05/2025 7:50 AM EDT us Dallin Cohen MD LAB BLOOD ORDERABLES Final Res ult [facility] [address] [place] [address], [place] [phone] * Vitamin D 25 hydroxy (06/05/2025 7:50 AM EDT) Vit D, 25-Hydroxy 40.6 30.0 - 100.0 ng/mL LAB CHEMISTRY METHOD 06/05/2025 12:17 PM EDT [facility] Blood Venous blood specimen / Unknown Venipuncture / Unknown 06/05/2025 7:50 AM EDT 06/05/2025 7:50 AM EDT Narrative [facility] - 06/05/2025 12:17 PM EDT Vitamin D Reference Range ng/ml Deficiency <10 Insufficiency 10-30 Sufficiency 30-100 Toxicity >100 us Dallin Cohen MD LAB BLOOD ORDERABLES Final Res ult [facility] [address] [place] [address], * (ABNORMAL) BUN (06/05/2025 7:50 AM EDT) BUN 23(H) 9 - 20 mg/dL LAB CHEMISTRY METHOD 06/05/2025 12:37 PM EDT [facility] Blood Venous blood specimen / Unknown Venipuncture / Unknown 06/05/2025 7:50 AM EDT 06/05/2025 7:50 AM EDT us Dallin Cohen MD LAB BLOOD ORDERABLES Final Res ult [facility] [address] [place] [address], * Thyroid stimulating hormone (06/05/2025 7:50 AM EDT) TSH 2.12 0.45 - 5.33 mcIU/mL LAB CHEMISTRY METHOD 06/05/2025 12:17 PM EDT [facility] Blood Venous blood specimen / Unknown Venipuncture / Unknown 06/05/2025 7:50 AM EDT 06/05/2025 7:50 AM EDT Dallin Cohen MD LAB BLOOD ORDERABLES Final Res ult [facility] [address] [place] [address], [place] [phone] * Testosterone, total (06/05/2025 7:50 AM EDT) Testosterone 401 240 - 950 ng/dL LAB CHEMISTRY METHOD 06/05/2025 12:17 PM EDT [facility] Blood Venous blood specimen / Unknown Venipuncture / Unknown 06/05/2025 7:50 AM EDT 06/05/2025 7:50 AM EDT Dallin Cohen MD LAB BLOOD ORDERABLES Final Res ult [facility] [address] [place] [address], [place] [phone] * (ABNORMAL) Hemoglobin A1c (06/05/2025 7:50 AM EDT) Hemoglobin A1C 5.9(H) <5.7 % LAB CHEMISTRY METHOD 06/05/2025 12:14 PM EDT [facility] Mean Bld Glu Estim. 123 mg/dL LAB CHEMISTRY METHOD 06/05/2025 12:14 PM EDT [facility] Blood Venous blood specimen / Unknown Venipuncture / Unknown 06/05/2025 7:50 AM EDT 06/05/2025 7:50 AM EDT Narrative [facility] - 06/05/2025 12:14 PM EDT ADA Guidelines: Increased risk Diabetes Mellitus A1C 5.7 - 6.4% and Fasting Blood Glucose 100 - 125 mg/dl Diabetes Mellitus: A1C >6.5% and Fasting Blood Glucose >125 mg/dl us Dallin Cohen MD LAB BLOOD ORDERABLES Final Res ult Performing Organization Address City/[facility]/ZIP Co de Phone Number [facility] [address] [place] [address], [place] [phone] * Glucose, fasting (06/05/2025 7:50 AM EDT) Glucose, Fasting 92 70 - 99 mg/dL LAB CHEMISTRY METHOD 06/05/2025 11:54 AM EDT [facility] Blood Venous blood specimen / Unknown Venipuncture / Unknown 06/05/2025 7:50 AM EDT 06/05/2025 7:50 AM EDT us Dallin Cohen MD LAB BLOOD ORDERABLES Final Res ult Performing Organization Address [facility]/ZIP Co de Phone Number [facility] [address] [place] [address], [place] [phone] * Vitamin B12 (06/05/2025 7:50 AM EDT) [facility] Vitamin B-12 306 180 - 914 pcg/mL LAB CHEMISTRY METHOD 06/05/2025 12:17 PM EDT [facility] Blood Venous blood specimen / Unknown Venipuncture / Unknown 06/05/2025 7:50 AM EDT 06/05/2025 7:50 AM EDT us Dallin Cohen MD LAB BLOOD ORDERABLES Final Res ult Performing Organization Address City/[facility]/ZIP Co de Phone Number [facility] [address] [place] [address], [place] [phone] * Hepatic function panel (06/05/2025 7:50 AM EDT) [facility] ALT (SGPT) 20 7 - 52 unit/L LAB CHEMISTRY METHOD 06/05/2025 11:54 AM EDT [facility] AST (SGOT) 24 5 - 40 unit/L LAB CHEMISTRY METHOD 06/05/2025 11:54 AM EDT [facility] Alkaline Phosphatase 66 34 - 104 unit/L LAB CHEMISTRY METHOD 06/05/2025 11:54 AM EDT [facility] Bilirubin, Direct 0.2 0.0 - 0.2 mg/dL LAB CHEMISTRY METHOD 06/05/2025 11:54 AM EDT [facility] Total Bilirubin 0.7 0.3 - 1.0 mg/dL LAB CHEMISTRY METHOD 06/05/2025 11:54 AM EDT [facility] Total Protein 6.9 6.4 - 8.5 g/dL LAB CHEMISTRY METHOD 06/05/2025 11:54 AM EDT [facility] Albumin 4.0 3.5 - 5.0 g/dL LAB CHEMISTRY METHOD 06/05/2025 11:54 AM EDT [facility] Globulin, Total 2.9 2.3 - 3.5 g/dL LAB CHEMISTRY METHOD 06/05/2025 11:54 AM [facility] A/G Ratio 1.4 LAB CHEMISTRY METHOD 06/05/2025 11:54 AM T [facility] Blood Venous blood specimen / Unknown Venipuncture / Unknown 06/05/2025 7:50 AM EDT 06/05/2025 7:50 AM EDT us Dallin Cohen MD LAB BLOOD ORDERABLES Final Res ult [facility] [address] [place] [address], [place] [phone] * Electrolyte panel (06/05/2025 7:50 AM EDT) Sodium 138 135 - 145 mmol/L LAB CHEMISTRY METHOD 06/05/2025 12:37 PM EDT [facility] Potassium 4.7 3.5 - 5.1 mmol/L LAB CHEMISTRY METHOD 06/05/2025 12:37 PM EDT [facility] Chloride 103 98 - 107 mmol/L LAB CHEMISTRY METHOD 06/05/2025 12:37 PM EDT [facility] CO2 26 24 - 32 mmol/L LAB CHEMISTRY METHOD 06/05/2025 12:37 PM EDT [facility] Anion Gap 9 5 - 14 LAB CHEMISTRY METHOD 06/05/2025 12:37 PM EDT [facility] Blood Venous blood specimen / Unknown Venipuncture / Unknown 06/05/2025 7:50 AM EDT 06/05/2025 7:50 AM EDT us Dallin Cohen MD LAB BLOOD ORDERABLES Final Res ult [facility] [address] [place] [address], [place] [phone] from Last 3 Months Insurance [employer] MED[employer] Care Teams Dental Practice Manager Relationship Specialty Start Date End Date Dallin Cohen MD [address] [facility] [place] [address] PCP - General Pulmonary Disease 08/21/15
== END 2025-07-16 10:26 | disposition home or self-care (01) ==
LOC: HO.HMCFMS 09:41
PROVIDERS: PCP Student in an Organized Health Care Education/Training Program; Visit Provider Student in an Organized Health Care Education/Training Program
DX: J44.9 Chronic obstructive pulmonary disease, unspecified (principal); F41.9 Anxiety disorder, unspecified; B37.0 Candidal stomatitis; I25.10 Atherosclerotic heart disease of native coronary artery without angina pectoris; N50.89 Other specified disorders of the male genital organs; Z23 Encounter for immunization

== ENCOUNTER → 2025-07-16 09:40 | Outpatient (BNVA) | payer MEDICARE, SELFPAY | PROVIDERS: PCP Student in an Organized Health Care Education/Training Program; Visit Provider Student in an Organized Health Care Education/Training Program | DX: J44.9 Chronic obstructive pulmonary disease, unspecified (principal); F41.9 Anxiety disorder, unspecified; B37.0 Candidal stomatitis; I25.10 Atherosclerotic heart disease of native coronary artery without angina pectoris; N50.89 Other specified disorders of the male genital organs; Z13.31 Encounter for screening for depression; Z13.39 Encounter for screening examination for other mental health and behavioral disorders | CPT/HCPCS: 90471; 96127; 99212 ==